=== PATIENT | male | born 1930 | race Caucasian/White ===

== ENCOUNTER 2016-08-03 07:33 | Outpatient (CLI) | payer MEDICARE, BC ==
[~2016-08-03] VITALS: Ht 168.9 cm; Wt 68.2 kg
--- NOTE | ~2016-08-03 | HEMODYNAMI ---
PATIENT:DIOR BLACK MEDICAL RECORD: [id number] : 28 LOCATION:[facility] ADMISSION DATE: 08/03/16 Generatedon:08/03/201610:07 Patient name: DIOR BLACK Patient #: [id number] SSN: [id number] : 1930 Date of study: 08/03/2016 Page: Of Hemodynamic Procedure Report Patient Data Patient Demographics Procedure consent was obtained First Name: DIOR Gender: Male Last Name: SOFIA : 1930 Middle Initial: JOECLYN Age: 85 year(s) Patient #: [id number] Race: Unknown SSN: [id number] Additional ID: [id number] Contact details [address]: [address] [place] [address] State: [place] City: [place] Zip code: [address] Past Medical History Allergies Allergen Reaction Date Comments Reported Other allergy 08/03/2016 [facility] Admission Admission Data Admission Date: 08/03/2016 Admission Time: 7:33 Arrival Date: 08/03/2016 Arrival Time: 0:00 Admit Source: Other Height (in.): 69 BSA: 1.83 (m2) Height (cm.): 175.26 BMI: 22.3 (kg/m2) Weight (lbs.): 151 Weight (kg.): 68.49 Lab Results Lab Result Date: 08/03/2016 Lab Result Time: 0:00 Biochemistry Name Units Result Min Max BUN mg/dl 15 --(--*-)-- 7 18 Creatinine mg/dl 0.6 --(*---)-- 0.6 1.3 CBC Name Units Result Min Max Hemoglobin g/dl 12.5 *-(----)-- 13.5 17.5 Procedure Procedure Types Cath Procedure Diagnostic Procedure [facility] w/Coronaries FFR/IVUS Intra-Coronary IVUS Initial PCI Procedure Coronary Stent Initial Miscellaneous Procedures Moderate Sedation up to 15 minutes Procedure Description Procedure Date Procedure Date: 08/03/2016 Procedure Start Time: 9:46 Procedure End Time: 10:06 Procedure Staff Name Function Sergey Baker MD Performing Physician Kelley Price RT Scrub Nalini Truong RN Nurse Zofia Aquino RT Monitor Procedure Data Cath Procedure Fluoroscopy Diagnostic fluoroscopy Total fluoroscopy Time: 3.1 time: 3.1 min min Diagnostic fluoroscopy Total fluoroscopy dose: 380 dose: 380 mGy mGy Contrast Material Contrast Material Type Amount (ml) Isovue 300 76 Entry Location Entry Primary Successful Side Size Upsize Upsize Entry Closure Succes sful Closure Location (Fr) 1 (Fr) 2 (Fr) Remarks Device Remarks Femoral Right 5 Fr 6 Fr Exoseal artery Short Estimated blood loss: 10 ml Diagnostic catheters Device Type Used For End Catheter Placement Cordis 5Fr Pigtail Ventriculography Catheter (MP) Cordis 5Fr JL 4.0 Procedure Catheter (MP) Cordis 5Fr 3DRC Catheter Procedure (MP) Procedure Complications No complications Procedure Medications Medication Administration Route Dosage Oxygen NC 2 l/min Lidocaine 2% added to field 20 Heparin Flush Bag added to field 2 bags (1000units/500ml NS) 0.9% NaCl I.V. 100 ml/hr Versed I.V. 1 mg Fentanyl I.V. 50 mcg Versed I.V. 1 mg Fentanyl I.V. 50 mcg Radial Cocktail added to field 1 syringe (Verapomil 2mg/Nitro 400mcg/Heparin 1500units) Heparin Bolus I.V. 4000 units Integrilin (Bolus I.V. 6.2 ml 2mg/ml) Plavix P.O. 600 mg Hemodynamics Rest BSA: 1.83 (m2) HGB: 12.5 (g/dl) O2 Consumption: Estimated: 202.4 (ml/min) O2 Con sumption indexed: Estimated:110.6 (ml/min/m) Heart Rate: 63 (bpm) Snapshots Pre Cath Intra NCS Post Cath Vital Signs Time Heart Resp SPO2 NIBP (mmHg) Rhythm Pain Sedation Rate (ipm) (%) Status Level (bpm) 9:34:36 71 20 100 150/85(105) NSR 0 (11) 10(A) , No pain 9:38:56 68 16 100 146/74(93) NSR 0 (11) 10(A) , No pain 9:43:16 73 18 98 126/71(95) NSR 0 (11) 10(A) , No pain 9:47:26 71 18 100 130/69(88) NSR 0 (11) 9(A) , No pain 9:51:39 70 19 100 112/67(107) NSR 0 (11) 9(A) , No pain 9:55:46 71 18 100 118/73(92) NSR 0 (11) 9(A) , No pain 9:59:53 75 19 100 115/74(91) NSR 0 (11) 9(A) , No pain 10:04:01 71 19 100 121/71(92) NSR 0 (11) 10(A) , No pain 10:06:33 66 18 100 123/73(93) NSR 0 (11) 10(A) , No pain Medications Time Medication Route Dose Verified Delivered Reason Note s Effectiveness by by 9:29:31 Oxygen NC 2 l/min Sergey Buffie used for Olivia Truong RN procedure 9:29:38 Lidocaine 2% added 20ml Sergey Sergey for local to vial Olivia Baker MD anesthetic field 9:29:45 Heparin Flush added 2 bags Sergey Sergey used for Bag to Olivia Baker MD procedure (1000units/500ml field NS) 9:29:53 0.9% NaCl I.V. 100 Sergey Buffie Per physician ml/hr Olivia Truong RN 9:44:42 Versed I.V. 1 mg Sergey Buffie for sedation Olivia Truong RN 9:44:48 Fentanyl I.V. 50 mcg Sergey Buffie for sedation Olivia Truong RN 9:49:12 Versed I.V. 1 mg Sergey Buffie for sedation Olivia Truong RN 9:49:16 Fentanyl I.V. 50 mcg Sergey Buffie for sedation Olivia Truong RN 9:49:17 Radial Cocktail added 1 Sergey Buffie not used (Verapomil to syringe Olivia Truong RN radial 2mg/Nitro field loop 400mcg/Heparin 1500units) 9:54:51 Heparin Bolus I.V. 4000 Sergey Buffie for veri fied units Olivia Truong RN anticoagulation with dr baker 9:57:49 Integrilin I.V. 6.2 ml Sergey Buffvick wast ed (Bolus 2mg/ml) Olivia Truong RN 3.8 ml of vial 10:04:30 Plavix P.O. 600 mg Sergey Truong RN antiplatelet therapy Procedure Log Time Note 9::15 Patient Height : 175.26 cm 9:14:20 Patient Weight : 68.49 kg 9:14:23 Arrival Date: 08/03/2016 12:00:00 AM 9:15:47 Diagnostic Cath Status : Elective 9::15 Admit Source: Other 9::18 Nalini Truong RN sent for patient. Start room use. :22:20 Time tracking: Regular hours 9::25 Plan of Care:Hemodynamics will remain stable., Cardiac rhythm will remain stable., Comfort level will be maintained., Respiratory function will remain adequate., Patient/ family verbilizes understanding of procedure., Procedure tolerated without complication., Recovers from procedure without complications.. 9:22:32 Patient received from Med II to CCL 2 Alert and oriented. Tansferred to table in Supine position. 9:22:33 Warm blankets applied, and vanessa hugger turned on for patient comfort. 9:22:34 Correct patient and procedure confirmed by team. 9:22:36 Signed procedure consent form obtained from patient. 9:22:50 H&P Date Dictated: 07/20/2016 Within 30 days and on chart., H&P Addendum completed by physician on day of procedure. (MUST COMPLETE FOR ALL OUTPATIENTS). 9:29:31 Oxygen 2 l/min NC was administered by Nalini Truong RN; used for procedure; 9:29:38 Lidocaine 2% 20ml vial added to field was administered by Sergey Baker MD; for local anesthetic; 9:29:45 Heparin Flush Bag (1000units/500ml NS) 2 bags added to field was administered by Sergey Baker MD; used for procedure; 9:29:53 0.9% NaCl 100 ml/hr I.V. was administered by Nalini Truong RN; Per physician; 9:33:26 ECG and BP/O2 sat monitors applied to patient. 9:33:27 Vital chart was started 9:33:29 Baseline sample Acquired. 9:33:34 Rhythm: sinus rhythm 9:33:36 Full Disclosure recording started 9:33:38 Pre-procedure instructions explained to patient. 9:33:41 Pre-op teaching completed and patient verbalized understanding. 9:33:43 Family in waiting room. 9:33:50 Patient NPO since Midnight. 9:34:04 Patient allergic to Other allergyPCN 9:34:08 Is the patient allergic to Iodine/contrast media? No. 9:34:10 Is patient on blood thinner?No 9:34:13 Patient diabetic? No. 9:34:16 Snore? Yes 9:34:18 Sleep apnea? No 9:34:31 Dentures? No partials in tight 9:34:44 IV patent on arrival in left forearm with 0.9% NaCl at [facility]. 9:36:13 Right Radial & Right Groin area was prepped with chlora-prep and draped in sterile fashion 9:36:14 Alarms reviewed by R. N. 9:36:16 Sharps counted by scrub and verified by R.N. 9:36:17 Physician paged 9:38:20 Lab Result : BUN 15 mg/dl 9:38:20 Lab Result : Hemoglobin 12.5 g/dl 9:38:20 Lab Result : Creatinine 0.6 mg/dl 9:38:26 Lab results completed and on chart. 9:41:10 Use device set Radial Dx 9:41:12 Acist Syringe opened to sterile field. 9:41:12 Medline Cath Pack opened to sterile field. 9:41:13 Bag Decanter opened to sterile field. 9:41:13 Terumo 6Fr Slender Glidesheath opened to sterile field. 9:41:14 St Buddy 260cm J .035 wire opened to sterile field. 9:41:14 Acist Hand Control opened to sterile field. 9:41:15 Acist Manifold opened to sterile field. 9:41:15 Tegaderm 4 x 4 opened to sterile field. 9:41:46 Zero performed for pressure channel P1 9:44:28 Physician arrived 9:44:28 --------ALL STOP TIME OUT------ 9:44:29 Final Timeout: patient, procedure, and site verified with staff and physician. All members of the team are in agreement. 9:44:30 Right Radial & Right Groin site verified by team. 9:44:34 Physical assessment completed. ASA score P 2 - A patient with mild systemic disease as per Sergey Baker MD. 9:44:37 Sedation plan: IV Moderate Sedation Versed, Fentanyl 9:44:42 Versed 1 mg I.V. was administered by Nalini Truong RN; for sedation; 9:44:48 Fentanyl 50 mcg I.V. was administered by Nalini Truong RN; for sedation; 9:46:41 Procedure started. 9:46:47 Local anesthetic to right radial artery with Lidocaine 2% by Sergey Baker MD.INITIAL ACCESS ONLY 9:48:32 Use device set Multipack Set 9:48:40 Terumo 5Fr Duck Sheath opened to sterile field. 9:48:42 Diagnostic Infinity 5Fr Multipack catheter opened to sterile field. 9:48:51 Local anesthetic to right femoral artery with Lidocaine 2% by eSrgey Baker MD.ADDITIONAL ACCESS 9:49:12 Versed 1 mg I.V. was administered by Nalini Truong RN; for sedation; 9:49:16 Fentanyl 50 mcg I.V. was administered by Nalini Truong RN; for sedation; 9:49:17 Radial Cocktail (Verapomil 2mg/Nitro 400mcg/Heparin 1500units) 1 syringe added to field was administered by Nalini Truong RN; ; not used radial loop 9:49:49 A 5 Fr sheath was inserted into the Right Femoral artery 9:50:09 A Cordis 5Fr Pigtail Catheter (MP) was advanced over the wire and used for Ventriculography. 9:50:16 LV gram done using ALEXIS 9:51:17 EF : 60 % 9:51:19 Catheter removed. 9:51:26 A Cordis 5Fr JL 4.0 Catheter (MP) was advanced over the wire and used for Procedure. 9:51:36 LCA angiography performed. 9:52:41 Catheter removed. 9:52:52 A Cordis 5Fr 3DRC Catheter (MP) was advanced over the wire and used for Procedure. 9:54:38 Sheath upsized to a 6 Fr Short. 9:54:51 Heparin Bolus 4000 units I.V. was administered by Nalini Truong RN; for anticoagulation; verified with dr baker 9:55:02 Crispy Gamertronic Launcher 6Fr 3DRC guide catheter opened to sterile field. 9:55:09 Purvis Whisper J 300cm 0.014 guide wire opened to sterile field. 9:55:11 Liberty Ak Chin Eagleye IVUS Catheter opened to sterile field. 9:55:28 ACC PCI Site: mRCA has ?% stenosis. 9:55:37 6 Fr 3DRC guide catheter was inserted over the wire 9:55:43 Whisper wire advanced. 9:55:55 IVUS catheter advanced over wire. 9:57:49 Integrilin (Bolus 2mg/ml) 6.2 ml I.V. was administered by Nalini Truong RN; ; wasted 3.8 ml of vial 9:59:30 IVUS catheter removed over wire. 10:00:19 Inflation Number: 1 A Medtronic Resolute 3.0 X 26 stent was prepped and advanced across the Mid RCA. The stent was deployed at 13 KANDICE for 0:10 (min:sec). 10:00:43 Wire removed. 10:00:43 Guide catheter removed. 10:00:58 Cordis 6Fr Exoseal opened to sterile field. 10:01:04 Procedure ended.(Physican Out) 10:01:23 Fluoroscopy time 03.10 minutes. 10:01:50 Fluoroscopy dose: 380 mGy 10:01:50 Flurop Dose total: 380 10:01:56 Contrast amount:Isovue 300 76ml. 10:01:57 Sharps counted by scrub and verified by R.N. 10:02:00 Insertion/operative site no bleeding no hematoma. 10:02:07 Post Procedure Pulses reassessed and unchanged 10:02:17 Post-procedure physical assessment completed. ASA score P 2 - A patient with mild systemic disease as per Sergey Baker MD. 10:02:28 Sheath removed intact; hemostasis achieved with Exoseal to the Right Femoral artery. 10:02:34 Post procedure rhythm: unchanged. 10:02:37 Estimated blood loss: 10 ml 10:02:39 Post procedure instruction explained to patient.Patient verbalizes understanding. 10:03:08 Procedure type changed to Cath procedure, Diagnostic procedure, LHC, LHC w/Coronaries, FFR/IVUS, Intra-Coronary IVUS Initial, PCI procedure, Coronary Stent Initial, Miscellaneous Procedures, Moderate Sedation up to 15 minutes 10:04:30 Plavix 600 mg P.O. was administered by Nalini Truong RN; for antiplatelet therapy; 10:05:52 Procedure and supply charges have been captured, reviewed, submitted and are correct. 10:05:59 Procedure Complication : No complications 10:06:04 Vital chart was stopped 10:06:05 See physician's report for complete and final results. 10:06:10 Report given to Pre/Post Procedure Room. 10:06:16 Patient transfered to Pre/Post Procedure Room with Stretcher. 10:06:20 Procedure ended. 10:06:20 Full Disclosure recording stopped 10:06:30 ACC-PCI Only Patient was given prescriptions, or instructed by Sergey Baker MD to start/continue the following medications upon discharge: Plavix 10:06:33 End room use (Document Last) Intervention Summary Intervention Notes Time ActionType Lesion and Equipment Action# Pressure Duration Attributes Used 10:00:19 Place stent Mid RCA Medtronic 1 13 00:10 Resolute 3.0 X 26 stent Device Usage Item Name Manufacture Quantity Catalog Hospital Part Current Minimal Lot# / Number Charge Number Stock Stock Serial# Code Acist Acist 1 93705 141607 536937 937800 20 Syringe Medical Systems Inc Medline Cardinal 1 [id number] 916305 99017 641478 5 Cath Pack Health Bag Microtek 1 2002S 880521 03040 145920 5 DecCredit Sesame [employer] Terumo 6Fr Terumo 1 [id number] 626403 499167 766197 [address] Bud[address] St Buddy 1 324760 603211 685030 262412 30 260cm J .035 wire Acist Hand Acist 1 11602 942311 482933 435938 5 Control Medical Systems Inc Acist Acist 1 35542 165256 306375 480441 5 Manifold Medical Systems Inc Tegaderm 4 3M 1 1626W 262447 703126 009272 5 x 4 Terumo 5Fr Terumo 1 [id number] 137703 811829 323893 40 Duck Sheath Diagnostic Cardinal 1 [id number] 319473 68160 151827 30 Infinity Health 5Fr Multipack catheter Cordis 5Fr Cardinal 1 [id number] 5 Pigtail Health Catheter (MP) Cordis 5Fr Cardinal 1 471505 5 JL 4.0 Health Catheter (MP) Cordis 5Fr Cardinal 1 088171 5 3DRC Health Catheter (MP) Medtronic Medtronic 1 [id number] 542326 249249 213159 1 Launcher 6Fr 3DRC guide catheter Purvis Purvis 1 [id number] 830775 930371 897019 5 Whisper J Vascular 300cm 0.014 guide wire Liberty Liberty 1 [id number] 639460 160383 054281 8 Ak Chin Eagleye IVUS Catheter Medtronic Medtronic 1 [id number] 088652 186501 0 [id number] Resolute 3.0 X 26 stent Cordis 6Fr Cardinal 1 EX600 956026 591038 739025 10 [facility] Signature Audit Tennyson Stage Time Signature Unsigned Intra-Procedure 08/03/2016 Zofia Aquino 10:07:04 AM RT(R) Signatures Monitor : Zofia Aquino Signature : RT Date : Time : [id number] [place] [address]
[~2016-08-03 07:33] MED LIST: ACIDOPHILUS X-S1 TAB PO; BAYER CHEWABLE81 MG PO; CALTRATE-600600 MG PO; CIPRO250 MG PO; FISH OIL 1,0001 CA1 PO; FLOMAX0.4 MG PO; GLUCOSAMINE & C1 CAP PO; HYDROCODON-ACE1 EAC7 PO; IMITREX50 MG PO; LIPITOR10 MG PO; METAMUCIL PACKE1 PKT PO; MULTI-DAY VITAM1 TAB PO; OCUVITE TABLET1 TA1 PO; PERCOCET 5-3251 TAB PO; PLAVIX75 MG PO; PROSCAR5 MG PO; TOPROL XL25 MG PO; VITAMIN B COMPL1 TA1 PO
[2016-08-03 08:13] VITALS: BP 148/79; Ht 168.9 cm; Wt 68.2 kg
[2016-08-03] MEDS ORDERED: IMITREX100 MG PO (08:22)
[2016-08-03] MEDS ORDERED: KONSYL PSYLLIU3.4 GM PO (08:28)
[2016-08-03 08:39] LABS: BASOPHILS 0 % (0.0-2.0); EOSINOPHILS 2.9 % (0-7); HEMATOCRIT 37.8 % (42.0-54.0); HEMOGLOBIN 12.5 g/dL (13.5-17.5); LYMPHOCYTES 26.9 % (15-50); MCH 31.2 pg (26.0-34.0); MCHC 33.1 g/dL (31.0-37.0); MCV 94.3 fL (80.0-100.0); MEAN PLATELET VOLUME 9.8 fL (7.4-10.4); MONOCYTES 14.3 % (2-11); NEUTROPHILS 55.9 % (40-80); RBC 4.01 10x6/uL (4.20-6.10); RDW 13.3 % (11.5-14.5); WBC 4.9 10x3/uL (4.8-10.8)
[2016-08-03 08:55] LABS: PLATELET COUNT 151 10x3/uL (130-400)
[2016-08-03 09:07] LABS: CALC OSMOLALITY 283 mosm/kg (275-300); CALCIUM 8.7 mg/dL (8.5-10.1); CARBON DIOXIDE 22.1 mmol/L (21.0-32.0); CHLORIDE - SERUM 109 mmol/L (98-107); CREATININE - SERUM 0.6 mg/dL (0.6-1.3); GLUCOSE 96 mg/dL (74-106); POTASSIUM - SERUM 4.6 mmol/L (3.5-5.1); SODIUM 142 mmol/L (136-145); UREA NITROGEN 15 mg/dL (7-18); eGFR NON AFRICAN AMERICAN > 90 mL/min (90-120)
[2016-08-03] MEDS ORDERED: PLAVIX75 MG PO (10:24)
--- NOTE | 2016-08-03 10:34 | NUR ---
RESTING IN BED WITH EYES CLOSED. VSS. 2L NC, NO RESP DISTRESS NOTED. NO C/O CHEST PAIN OR NAUSEA. RIGHT GROIN DRSG CDI, NO BLEEDING OR HEMATOMA NOTED. INSTRUCTED PT TO KEEP HEAD FLAT ON PILLOW AND RIGHT LEG STRAIGHT. WILL CONTINUE TO MONITOR.
--- NOTE | 2016-08-03 11:24 | NUR ---
VOIDED 400CC OF CLEAR YELLOW URINE.
--- NOTE | 2016-08-03 12:02 | NUR ---
VSS WITH CHEST PAIN DENIED. 6 FR EXOSEAL R/GROIN CDI NO BLEEDING NO HEMATOMA NOTED FAMILY AT BEDSIDE
--- NOTE | 2016-08-03 13:29 | NUR ---
HOB ELEVATED 30 DEGREES, RIGHT GROIN DRSG CDI. NO BLEEDING OR HEMATOMA NOTED. VSS.
--- NOTE | 2016-08-03 13:36 | NUR ---
LEFT FA PIV D/C'D WITH CATHETER INTACT, BAND AID TO SITE. UP TO GET DRESSED.
--- NOTE | 2016-08-03 13:52 | NUR ---
DISCHARGE INSTRUCTIONS GIVEN, VERBALIZED UNDERSTANDING. PLAVIX PRESCRIPTION GIVEN.
--- NOTE | 2016-08-03 14:00 | NUR ---
TAKEN OUT VIA WHEELCHAIR BY CATH FLOOR MOLDER. LEFT FACILITY WITH FAMILY MEMBER AND ALL PERSONAL BELONGINGS.
--- NOTE | 2016-08-10 14:38 | OP ---
PATIENT NAME: DIOR BLACK MEDICAL RECORD: [id number] :28 LOCATION:D.[facility] ADMISSION DATE: SURGEON: SHANA PAPPAS MD DATE OF OPERATION: 08/03/2016 PROCEDURES: 1. PTCA stent, RCA. 2. Intravascular ultrasound, RCA. 3. Left heart catheterization. 4. Selective coronary angiography. 5. Left ventriculogram. INDICATIONS: Angina and coronary artery disease. PROCEDURE IN DETAIL: After informed consent was obtained and after detailed explanation of risks, benefits as well as alternative therapies, the patient elected to proceed with angiogram and angioplasty. The right femoral area was prepped and draped in normal sterile fashion. The right femoral artery was cannulated via modified Seldinger technique with placement of 6-Frisian sheath. All catheters exchanged through this sheath. FINDINGS: The left ventriculogram was performed in standard 30-degree ALEXIS view, reveals good cardiac wall motion throughout all segments. Overall ejection fraction estimated at 50%-55%. SELECTIVE CORONARY ANGIOGRAPHY: 1. Left main is with no significant angiographic disease. 2. Left anterior descending has previously placed stents in the LAD and the LAD diagonal. These are widely patent with no significant restenosis. No disease elsewise throughout the LAD or its branches. 3. Left circumflex shows moderate irregularities, but no flow-limiting stenosis. 4. Right coronary has previously placed stent. This is with a greater than 75% in-stent restenosis confirmed by intravascular ultrasound. PTCA STENT OF THE RCA: The stent used was a 3.0 x 22 mm Resolute. Result was 0% residual stenosis. OVERALL IMPRESSION: Successful percutaneous transluminal coronary angioplasty stent of the right coronary artery going from greater than 75% initial stenosis to 0% residual. TRANSINT:[id number] Voice Confirmation ID: [id number] DOCUMENT ID: [id number] SHANA PAPPAS MD at 1438 CC: [id number] DICTATION DATE: 08/03/16 1006 RELEASE AND TECHNICAL RECORDS CLERK: 08/03/16 1048 DEP CLI 08/03/16 [place] [id number]
== END 2016-08-03 14:00 | disposition home or self-care (01) ==
LOC: D.CATH 07:33
PROVIDERS: Internal Medicine Interventional Cardiology
DX: I25.119 Atherosclerotic heart disease of native coronary artery with unspecified angina pectoris (principal); T82.855A Stenosis of coronary artery stent, initial encounter

== ENCOUNTER → 2016-10-29 | Emergency (ER) | payer MEDICARE, BC ==
[2016-08-03 08:13] VITALS: BMI 23.9
[~2016-10-29] MED LIST changes: +IMITREX100 MG PO; +KONSYL PSYLLIU3.4 GM PO
== END ==
LOC: D.ER 19:36
DX: S16.1XXA Strain of muscle, fascia and tendon at neck level, initial encounter (principal); W19.XXXA Unspecified fall, initial encounter; S00.03XA Contusion of scalp, initial encounter; Z95.5 Presence of coronary angioplasty implant and graft

== ENCOUNTER → 2017-12-12 15:20 | Outpatient (CLI) | payer MEDICARE, BC ==
[2016-08-03 08:13] VITALS: BMI 23.9
[2017-12-12 15:54] LABS: BASOPHILS 0.2 % (0-2); EOSINOPHILS 3.2 % (0-7); HEMATOCRIT 37.6 % (42.0-54.0); HEMOGLOBIN 12.3 g/dL (13.5-17.5); IMMATURE GRANULOCYTES 0.2 % (0-5); LYMPHOCYTES 24.7 % (15-50); MCH 31.4 pg (26.0-34.0); MCHC 32.7 g/dL (31.0-37.0); MCV 95.9 fL (80.0-100.0); MEAN PLATELET VOLUME 9.5 fL (7.4-10.4); MONOCYTES 12.3 % (2-11); NEUTROPHILS 59.4 % (40-80); PLATELET COUNT 205 10x3/uL (130-400); RBC 3.92 10x6/uL (4.20-6.10); RDW 13.6 % (11.5-14.5); WBC 5.9 10x3/uL (4.8-10.8)
[2017-12-12 16:19] LABS: ALBUMIN 3.7 g/dL (3.4-5.0); ALKALINE PHOSPHATASE 67 U/L (46-116); ALT (SGPT) 20 U/L (10-68); BILIRUBIN - TOTAL 0.26 mg/dL (0.2-1.3); CALC OSMOLALITY 274 mosm/kg (275-300); CALCIUM 8.8 mg/dL (8.5-10.1); CARBON DIOXIDE 33.3 mmol/L (21.0-32.0); CHLORIDE - SERUM 104 mmol/L (98-107); CHOL - HDL RATIO 2.8 ratio (2.3-4.9); CHOLESTEROL, TOTAL 145 mg/dL (0-200); CREATININE - SERUM 0.8 mg/dL (0.6-1.3); GLUCOSE 93 mg/dL (74-106); HDL CHOLESTEROL 52 mg/dL (32-96); LDL CHOLESTEROL 77 mg/dL (0-100); LDL-HDL RATIO 1.5 ratio (1.5-3.5); POTASSIUM - SERUM 4.2 mmol/L (3.5-5.1); PROTEIN - SERUM 6.9 g/dL (6.4-8.2); SODIUM 137 mmol/L (136-145); THYROID STIMULATING HORMONE 1.76 uIU/mL (0.36-3.74); TRIGLYCERIDE 82 mg/dL (30-200); UREA NITROGEN 14 mg/dL (7-18); eGFR NON AFRICAN AMERICAN > 90 mL/min (90-120)
== END | disposition home or self-care (01) ==
LOC: D.LAB 11:45
PROVIDERS: Family Medicine
DX: Z00.01 Encounter for general adult medical examination with abnormal findings (principal); E78.00 Pure hypercholesterolemia, unspecified; J44.9 Chronic obstructive pulmonary disease, unspecified; R51 Headache; N40.0 Benign prostatic hyperplasia without lower urinary tract symptoms

== ENCOUNTER → 2018-06-09 09:33 | Outpatient (CLI) | payer MEDICARE, BC ==
[2016-08-03 08:13] VITALS: BMI 23.9
== END | disposition home or self-care (01) ==
LOC: D.US 09:33
DX: N23 Unspecified renal colic (principal)

== ENCOUNTER 2019-01-28 08:12 | Emergency (ER) | payer MEDICARE, BC ==
[~2019-01-28] VITALS: Ht 168.9 cm; Wt 65.9 kg
[2019-01-28 08:27] VITALS: BP 122/70; Ht 168.9 cm; Wt 65.9 kg
[2019-01-28] MEDS ORDERED: ZITHROMAX500 MG PO (08:46)
== END 2019-01-28 08:58 | disposition home or self-care (01) ==
LOC: D.ER 08:12
DX: J20.9 Acute bronchitis, unspecified (principal); J02.9 Acute pharyngitis, unspecified

== ENCOUNTER 2019-03-01 07:48 | Emergency (ER) | payer MEDICARE, BC ==
[~2019-03-01] VITALS: Ht 168.9 cm; Wt 65.5 kg
[~2019-03-01 07:48] MED LIST changes: +ZITHROMAX500 MG PO
[2019-03-01 07:53] VITALS: Ht 168.9 cm; Wt 65.5 kg
[2019-03-01 08:14] LABS: BASOPHILS 0.2 % (0-2); EOSINOPHILS 2.9 % (0-7); HEMATOCRIT 36.7 % (42.0-54.0); HEMOGLOBIN 11.8 g/dL (13.5-17.5); IMMATURE GRANULOCYTES 0.2 % (0-5); LYMPHOCYTES 26.2 % (15-50); MCH 31.5 pg (26.0-34.0); MCHC 32.2 g/dL (31.0-37.0); MCV 97.9 fL (80.0-100.0); MEAN PLATELET VOLUME 9.4 fL (7.4-10.4); MONOCYTES 11.7 % (2-11); NEUTROPHILS 58.8 % (40-80); PLATELET COUNT 229 10x3/uL (130-400); RBC 3.75 10x6/uL (4.20-6.10); WBC 4.5 10x3/uL (4.8-10.8)
[2019-03-01 08:28] LABS: APTT 28.3 SECONDS (22.8-39.4); INR 1.1 (0.85-1.17); PROTIME 13.7 SECONDS (11.6-15.0)
[2019-03-01 08:30] LABS: ALBUMIN 3.6 g/dL (3.4-5.0); ALKALINE PHOSPHATASE 78 U/L (46-116); ALT (SGPT) 21 U/L (10-68); CALC OSMOLALITY 283 mosm/kg (275-300); CALCIUM 8.9 mg/dL (8.5-10.1); CARBON DIOXIDE 29.3 mmol/L (21.0-32.0); CHLORIDE - SERUM 107 mmol/L (98-107); CREATININE - SERUM 0.8 mg/dL (0.6-1.3); GLUCOSE 126 mg/dL (74-106); POTASSIUM - SERUM 3.5 mmol/L (3.5-5.1); PROTEIN - SERUM 6.8 g/dL (6.4-8.2); SODIUM 142 mmol/L (136-145); UREA NITROGEN 11 mg/dL (7-18); eGFR NON AFRICAN AMERICAN > 90 mL/min (90-120)
[2019-03-01 08:41] LABS: CKMB 1.3 U/L (0.0-3.6); CREATINE KINASE 72 UL (21-232); MAGNESIUM - SERUM 1.9 mg/dL (1.8-2.4); TROPONIN-I < 0.017 ng/mL (0.000-0.060)
[2019-03-01 11:50] VITALS: BP 142/84
== END 2019-03-01 12:14 | disposition home or self-care (01) ==
LOC: D.ER 07:48
PROVIDERS: Family Medicine
DX: R07.9 Chest pain, unspecified (principal); I25.10 Atherosclerotic heart disease of native coronary artery without angina pectoris